=== PATIENT | male | born 1980 | race Caucasian/White ===

== ENCOUNTER 2021-01-11 22:26 | Emergency (ER) | payer SELFPAY ==
[2021-01-11] MEDS ORDERED: Acetaminophen 500 MG Tab ONE (23:27)
[2021-01-11] MEDS ORDERED: Dexamethasone 10 MG/ML SDV IM ONE (23:28)
[2021-01-11] MEDS ORDERED: Sodium Chloride 0.9% 1,000 ML IV ONE (23:28)
--- NOTE | 2021-01-11 23:31 | EDM.PDOC ---
<Jamel Kumar - Last Filed: 01/12/21 02:52> ED HPI GENERAL MEDICAL PROBLEM - General Chief Complaint: Respiratory Problem Stated Complaint: DIFFICULTY BREATHING Time Seen by Provider: 01/11/21 23:11 Source of Information: Reports: Patient History Limitations: Reports: Respiratory Distress - History of Present Illness INITIAL COMMENTS - FREE TEXT/NARRATIVE: Patient is a 40-year-old male presents today for shortness of breath. States for the past few days has not been feeling well with body aches and fatigue he states this evening his breathing became more intense and he feels he has to work to breathe. In triage patient was satting 50% on room air replacement fever and improvement to the mid 80s. Patient current denies any chest pain ab dominal pain states he feels very short of breath and fatigue. Patient also found to have a fever as well. - Related Data Allergies Allergy/AdvReac Type Severity Reaction Status Date / Time No Known Allergies Allergy Verified 01/11/21 23:29 Home Meds: Home Meds . [No Known Home Meds] 01/11/21 [History] ED ROS GENERAL - Review of Systems Review Of Systems: Unable To Obtain Reason Not Obtained: Respiratory status ED EXAM, GENERAL - Physical Exam Exam: See Below Exam Limited By: Respiratory Distress General Appearance: Severe Distress Eye Exam: Bilateral Eye: EOMI, PERRL Head: Atraumatic Neck: Normal Inspection Respiratory/Chest: Respiratory Distress Cardiovascular: Normal Peripheral Pulses, Regular Rate, Rhythm GI/Abdominal: Normal Bowel Sounds, Soft, Non-Tender Extremities: Normal Inspection, Normal Range of Motion Neurological: Alert, Oriented #1 Interpretation EKG Date: 01/11/21 Time: 23:18 Rhythm: Other (sinus tach) Rate (Beats/Min): 127 ST-T: Normal Course - Re-Assessments/Exams Free Text/Narrative Re-Assessment/Exam: 01/12/21 00:57 Patient has a positive troponin sugar 600. Patient EKG showed a sinus tach is not complaining of any chest pain currently. Patient will need to be transferred we have called multiple hospitals who do not have beds who continue to look for placement and transfer for patient. Patient was given IV insulin and IV potassium as well. 01/12/21 02:52 We have placed multiple calls out to have patient transferred. We have tried [facility] and I will will without success. Patient was started on Lovenox. Patient will likely need a Valdez as his creatinine is elevated. Patient still needs evaluation by cardiology and nephrology. Departure - Departure Disposition: DC/Tfer to [facility] 02 Clinical Impression: COVID-19 - Discharge Information Referrals: PCP,Not In Area [Primary Care Provider] - Forms: ED Department Discharge Critical Care Note - Critical Care Note Total Time (mins): 55 Comments: Critical Care Procedure Note Authorized and Performed by: Dr. Kumar Total critical care time: Approximately Due to a high probability of clinically significant, life threatening deterioration, the patient required my highest level of preparedness to intervene emergently and I personally spent this critical care time directly and personally managing the patient. This critical care time included obtaining a history; examining the patient; pulse oximetry; ordering and review of studies; arranging urgent treatment with development of a management plan; evaluation of patient's response to treatment; frequent reassessment; and, discussions with other providers. This critical care time was performed to assess and manage the high probability of imminent, life-threatening deterioration that could result in multi-organ failure. It was exclusive of separately billable procedures and treating other patients and teaching time. - Assessment/Plan Plan: Patient is a 40-year-old male who presents today for respiratory distress. Satting 50s on room air. Placed on a nonrebreather would not be transition to BiPAP as well. Unclear cause of this could be likely Covid will also obtain EKG and labs to rule out any other causes. <Maco Restrepo - Last Filed: 01/12/21 13:19> Course - Vital Signs Last Recorded V/S: Last Vital Signs Temp 96.8 F L 01/12/21 06:19 Pulse 97 01/12/21 13:08 Resp 26 H 01/12/21 13:08 BP 135/91 H 01/12/21 13:08 Pulse Ox 93 L 01/12/21 13:08 - Orders/Labs/Meds Orders: Active Orders 24 hr Category Date Time Status RT BiPAP/CPAP [RC] ASDIRECTED Care 01/12/21 00:13 Active Dextrose 50% in Water Med 01/12/21 00:45 Active 50 ml IVPUSH ASDIRECTED PRN Dextrose 50% in Water Med 01/12/21 02:03 Active 50 ml IVPUSH ASDIRECTED PRN Dextrose 50% in Water Med 01/12/21 04:16 Active 50 ml IVPUSH ASDIRECTED PRN Glucagon,Human Recombinant [GlucaGen] Med 01/12/21 00:45 Active 1 mg IM ASDIRECTED PRN Glucagon,Human Recombinant [GlucaGen] Med 01/12/21 02:03 Active 1 mg IM ASDIRECTED PRN Glucagon,Human Recombinant [GlucaGen] Med 01/12/21 04:16 Active 1 mg IM ASDIRECTED PRN Medication Orders Dextrose/Water (50% Dextrose In Water 50 Ml Syringe) 50 ml IVPUSH ASDIRECTED PRN PRN Reason: Hypoglycemia Dextrose/Water (50% Dextrose In Water 50 Ml Syringe) 50 ml IVPUSH ASDIRECTED PRN PRN Reason: Hypoglycemia Dextrose/Water (50% Dextrose In Water 50 Ml Syringe) 50 ml IVPUSH ASDIRECTED PRN PRN Reason: Hypoglycemia Glucagon (Glucagon,Human Recombinant 1 Mg Vial) 1 mg IM ASDIRECTED PRN PRN Reason: Hypoglycemia Glucagon (Glucagon,Human Recombinant 1 Mg Vial) 1 mg IM ASDIRECTED PRN PRN Reason: Hypoglycemia Glucagon (Glucagon,Human Recombinant 1 Mg Vial) 1 mg IM ASDIRECTED PRN PRN Reason: Hypoglycemia Labs: Laboratory Tests 01/11/21 01/11/21 01/11/21 Range/Units 23:35 23:40 23:40 WBC 8.29 (4.0-11.0) K/uL RBC 4.36 L (4.50-5.90) M/uL Hgb 14.2 (13.0-17.0) g/dL Hct 40.1 (38.0-50.0) % MCV 92.0 (80.0-98.0) fL MCH 32.6 H (27.0-32.0) pg MCHC 35.4 (31.0-37.0) g/dL RDW Std Deviation 43.2 (28.0-62.0) fl RDW Coeff of [place] 13 (11.0-15.0) % Plt Count 193 (150-400) K/uL MPV 10.60 (7.40-12.00) fL Neut % (Auto) 89.6 H (48.0-80.0) % Lymph % (Auto) 6.0 L (16.0-40.0) % [place] % (Auto) 4.3 (0.0-15.0) % Eos % (Auto) 0.0 (0.0-7.0) % Baso % (Auto) 0.1 (0.0-1.5) % Neut # (Auto) 7.4 H (1.4-5.7) K/uL Lymph # (Auto) 0.5 L (0.6-2.4) K/uL [place] # (Auto) 0.4 (0.0-0.8) K/uL Eos # (Auto) 0.0 (0.0-0.7) K/uL Baso # (Auto) 0.0 (0.0-0.1) K/uL Nucleated RBC % 0.0 /100WBC Nucleated RBCs # 0 K/uL D-Dimer, Quantitative (0.0-0.50) mg/L FEU ABG pH (7.35-7.45) ABG pCO2 (35-45) mmHG ABG pO2 (80-105) mmHG ABG HCO3 (22-26) mEq/L ABG Total CO2 (23-27) mmol/L ABG Base Excess (-2.0-3.0) Sodium 130 L (136-148) mmol/L Potassium 4.1 (3.5-5.1) mmol/L Chloride 94 L (98-107) mmol/L Carbon Dioxide 20.3 L (21.0-32.0) mmol/L BUN 70 H (7.0-18.0) mg/dL Creatinine 4.1 H (0.8-1.3) mg/dL Est Cr Clr Drug Dosing 25.00 mL/min Estimated GFR (MDRD) 16.1 ml/min Glucose 660 H* (74-106) mg/dL POC Glucose (70-99) mg/dL Calcium 7.1 L (8.5-10.1) mg/dL Magnesium (1.8-2.4) mg/dL Total Bilirubin 1.1 H (0.2-1.0) mg/dL AST 295 H (15-37) IU/L ALT 250 H (14-63) IU/L Alkaline Phosphatase 47 (46-116) U/L Troponin I 3.340 H* (0.000-0.056) ng/mL B-Natriuretic Peptide (<100) PG/ML Total Protein 5.8 L (6.4-8.2) g/dL Albumin 2.2 L (3.4-5.0) g/dL Globulin 3.6 (2.6-4.0) g/dL Albumin/Globulin Ratio 0.6 L (0.9-1.6) Urine Color Urine Appearance Urine pH (5.0-8.0) Ur Specific [place] (1.001-1.035) Urine Protein (NEGATIVE) mg/dL Urine Glucose (UA) (NEGATIVE) mg/dL Urine Ketones (NEGATIVE) mg/dL Urine Occult Blood (NEGATIVE) Urine Nitrite (NEGATIVE) Urine Bilirubin (NEGATIVE) Urine Urobilinogen (<2.0) EU/dL Ur Leukocyte Esterase (NEGATIVE) Urine RBC (0-2/HPF) Urine WBC (0-5/HPF) Ur Epithelial Cells (NONE-FEW) Urine Bacteria (NEGATIVE) SARS-CoV-2 RNA (DIALLO) POSITIVE H (NEGATIVE) 01/11/21 01/11/21 01/11/21 Range/Units 23:40 23:40 23:40 WBC (4.0-11.0) K/uL RBC (4.50-5.90) M/uL Hgb (13.0-17.0) g/dL Hct (38.0-50.0) % MCV (80.0-98.0) fL MCH (27.0-32.0) pg MCHC (31.0-37.0) g/dL RDW Std Deviation (28.0-62.0) fl RDW Coeff of [place] (11.0-15.0) % Plt Count (150-400) K/uL MPV (7.40-12.00) fL Neut % (Auto) (48.0-80.0) % Lymph % (Auto) (16.0-40.0) % [place] % (Auto) (0.0-15.0) % Eos % (Auto) (0.0-7.0) % Baso % (Auto) (0.0-1.5) % Neut # (Auto) (1.4-5.7) K/uL Lymph # (Auto) (0.6-2.4) K/uL [place] # (Auto) (0.0-0.8) K/uL Eos # (Auto) (0.0-0.7) K/uL Baso # (Auto) (0.0-0.1) K/uL Nucleated RBC % /100WBC Nucleated RBCs # K/uL D-Dimer, Quantitative 4.19 H (0.0-0.50) mg/L FEU ABG pH (7.35-7.45) ABG pCO2 (35-45) mmHG ABG pO2 (80-105) mmHG ABG HCO3 (22-26) mEq/L ABG Total CO2 (23-27) mmol/L ABG Base Excess (-2.0-3.0) Sodium (136-148) mmol/L Potassium (3.5-5.1) mmol/L Chloride (98-107) mmol/L Carbon Dioxide (21.0-32.0) mmol/L BUN (7.0-18.0) mg/dL Creatinine (0.8-1.3) mg/dL Est Cr Clr Drug Dosing mL/min Estimated GFR (MDRD) ml/min Glucose (74-106) mg/dL POC Glucose (70-99) mg/dL Calcium (8.5-10.1) mg/dL Magnesium 2.5 H (1.8-2.4) mg/dL Total Bilirubin (0.2-1.0) mg/dL AST (15-37) IU/L ALT (14-63) IU/L Alkaline Phosphatase (46-116) U/L Troponin I (0.000-0.056) ng/mL B-Natriuretic Peptide 289 H (<100) PG/ML Total Protein (6.4-8.2) g/dL Albumin (3.4-5.0) g/dL Globulin (2.6-4.0) g/dL Albumin/Globulin Ratio (0.9-1.6) Urine Color Urine Appearance Urine pH (5.0-8.0) Ur Specific [place] (1.001-1.035) Urine Protein (NEGATIVE) mg/dL Urine Glucose (UA) (NEGATIVE) mg/dL Urine Ketones (NEGATIVE) mg/dL Urine Occult Blood (NEGATIVE) Urine Nitrite (NEGATIVE) Urine Bilirubin (NEGATIVE) Urine Urobilinogen (<2.0) EU/dL Ur Leukocyte Esterase (NEGATIVE) Urine RBC (0-2/HPF) Urine WBC (0-5/HPF) Ur Epithelial Cells (NONE-FEW) Urine Bacteria (NEGATIVE) SARS-CoV-2 RNA (DIALLO) (NEGATIVE) 01/12/21 01/12/21 01/12/21 Range/Units 00:41 01:58 02:48 WBC (4.0-11.0) K/uL RBC (4.50-5.90) M/uL Hgb (13.0-17.0) g/dL Hct (38.0-50.0) % MCV (80.0-98.0) fL MCH (27.0-32.0) pg MCHC (31.0-37.0) g/dL RDW Std Deviation (28.0-62.0) fl RDW Coeff of [place] (11.0-15.0) % Plt Count (150-400) K/uL MPV (7.40-12.00) fL Neut % (Auto) (48.0-80.0) % Lymph % (Auto) (16.0-40.0) % [place] % (Auto) (0.0-15.0) % Eos % (Auto) (0.0-7.0) % Baso % (Auto) (0.0-1.5) % Neut # (Auto) (1.4-5.7) K/uL Lymph # (Auto) (0.6-2.4) K/uL [place] # (Auto) (0.0-0.8) K/uL Eos # (Auto) (0.0-0.7) K/uL Baso # (Auto) (0.0-0.1) K/uL Nucleated RBC % /100WBC Nucleated RBCs # K/uL D-Dimer, Quantitative (0.0-0.50) mg/L FEU ABG pH 7.42 (7.35-7.45) ABG pCO2 27 L (35-45) mmHG ABG pO2 79 L (80-105) mmHG ABG HCO3 17 L (22-26) mEq/L ABG Total CO2 15.4 L (23-27) mmol/L ABG Base Excess -5.5 L (-2.0-3.0) Sodium (136-148) mmol/L Potassium (3.5-5.1) mmol/L Chloride (98-107) mmol/L Carbon Dioxide (21.0-32.0) mmol/L BUN (7.0-18.0) mg/dL Creatinine (0.8-1.3) mg/dL Est Cr Clr Drug Dosing mL/min Estimated GFR (MDRD) ml/min Glucose (74-106) mg/dL POC Glucose > 519 H* (70-99) mg/dL Calcium (8.5-10.1) mg/dL Magnesium (1.8-2.4) mg/dL Total Bilirubin (0.2-1.0) mg/dL AST (15-37) IU/L ALT (14-63) IU/L Alkaline Phosphatase (46-116) U/L Troponin I (0.000-0.056) ng/mL B-Natriuretic Peptide (<100) PG/ML Total Protein (6.4-8.2) g/dL Albumin (3.4-5.0) g/dL Globulin (2.6-4.0) g/dL Albumin/Globulin Ratio (0.9-1.6) Urine Color YELLOW Urine Appearance SLT CLOUDY Urine pH 6.0 (5.0-8.0) Ur Specific [place] 1.020 (1.001-1.035) Urine Protein 30 H (NEGATIVE) mg/dL Urine Glucose (UA) >=1000 (NEGATIVE) mg/dL Urine Ketones 15 H (NEGATIVE) mg/dL Urine Occult Blood LARGE H (NEGATIVE) Urine Nitrite NEGATIVE (NEGATIVE) Urine Bilirubin NEGATIVE (NEGATIVE) Urine Urobilinogen 0.2 (<2.0) EU/dL Ur Leukocyte Esterase NEGATIVE (NEGATIVE) Urine RBC 0-2 (0-2/HPF) Urine WBC 0-2 (0-5/HPF) Ur Epithelial Cells RARE (NONE-FEW) Urine Bacteria RARE (NEGATIVE) SARS-CoV-2 RNA (DIALLO) (NEGATIVE) 01/12/21 01/12/21 01/12/21 Range/Units 03:40 06:10 06:45 WBC (4.0-11.0) K/uL RBC (4.50-5.90) M/uL Hgb (13.0-17.0) g/dL Hct (38.0-50.0) % MCV (80.0-98.0) fL MCH (27.0-32.0) pg MCHC (31.0-37.0) g/dL RDW Std Deviation (28.0-62.0) fl RDW Coeff of [place] (11.0-15.0) % Plt Count (150-400) K/uL MPV (7.40-12.00) fL Neut % (Auto) (48.0-80.0) % Lymph % (Auto) (16.0-40.0) % [place] % (Auto) (0.0-15.0) % Eos % (Auto) (0.0-7.0) % Baso % (Auto) (0.0-1.5) % Neut # (Auto) (1.4-5.7) K/uL Lymph # (Auto) (0.6-2.4) K/uL [place] # (Auto) (0.0-0.8) K/uL Eos # (Auto) (0.0-0.7) K/uL Baso # (Auto) (0.0-0.1) K/uL Nucleated RBC % /100WBC Nucleated RBCs # K/uL D-Dimer, Quantitative (0.0-0.50) mg/L FEU ABG pH (7.35-7.45) ABG pCO2 (35-45) mmHG ABG pO2 (80-105) mmHG ABG HCO3 (22-26) mEq/L ABG Total CO2 (23-27) mmol/L ABG Base Excess (-2.0-3.0) Sodium 134 L 135 L (136-148) mmol/L Potassium 3.9 4.5 (3.5-5.1) mmol/L Chloride 101 103 (98-107) mmol/L Carbon Dioxide 20.9 L 23.3 (21.0-32.0) mmol/L BUN 68 H 72 H (7.0-18.0) mg/dL Creatinine 3.9 H 3.9 H (0.8-1.3) mg/dL Est Cr Clr Drug Dosing 26.28 26.28 mL/min Estimated GFR (MDRD) 17.0 17.0 ml/min Glucose 564 H* 541 H* (74-106) mg/dL POC Glucose 516 H* (70-99) mg/dL Calcium 7.2 L 7.3 L (8.5-10.1) mg/dL Magnesium (1.8-2.4) mg/dL Total Bilirubin 0.9 (0.2-1.0) mg/dL AST 260 H (15-37) IU/L ALT 248 H (14-63) IU/L Alkaline Phosphatase 48 (46-116) U/L Troponin I 2.780 H* (0.000-0.056) ng/mL B-Natriuretic Peptide (<100) PG/ML Total Protein 5.7 L (6.4-8.2) g/dL Albumin 2.2 L (3.4-5.0) g/dL Globulin 3.5 (2.6-4.0) g/dL Albumin/Globulin Ratio 0.6 L (0.9-1.6) Urine Color Urine Appearance Urine pH (5.0-8.0) Ur Specific [place] (1.001-1.035) Urine Protein (NEGATIVE) mg/dL Urine Glucose (UA) (NEGATIVE) mg/dL Urine Ketones (NEGATIVE) mg/dL Urine Occult Blood (NEGATIVE) Urine Nitrite (NEGATIVE) Urine Bilirubin (NEGATIVE) Urine Urobilinogen (<2.0) EU/dL Ur Leukocyte Esterase (NEGATIVE) Urine RBC (0-2/HPF) Urine WBC (0-5/HPF) Ur Epithelial Cells (NONE-FEW) Urine Bacteria (NEGATIVE) SARS-CoV-2 RNA (DIALLO) (NEGATIVE) 01/12/21 01/12/21 Range/Units 06:45 11:45 WBC (4.0-11.0) K/uL RBC (4.50-5.90) M/uL Hgb (13.0-17.0) g/dL Hct (38.0-50.0) % MCV (80.0-98.0) fL MCH (27.0-32.0) pg MCHC (31.0-37.0) g/dL RDW Std Deviation (28.0-62.0) fl RDW Coeff of [place] (11.0-15.0) % Plt Count (150-400) K/uL MPV (7.40-12.00) fL Neut % (Auto) (48.0-80.0) % Lymph % (Auto) (16.0-40.0) % [place] % (Auto) (0.0-15.0) % Eos % (Auto) (0.0-7.0) % Baso % (Auto) (0.0-1.5) % Neut # (Auto) (1.4-5.7) K/uL Lymph # (Auto) (0.6-2.4) K/uL [place] # (Auto) (0.0-0.8) K/uL Eos # (Auto) (0.0-0.7) K/uL Baso # (Auto) (0.0-0.1) K/uL Nucleated RBC % /100WBC Nucleated RBCs # K/uL D-Dimer, Quantitative (0.0-0.50) mg/L FEU ABG pH 7.37 (7.35-7.45) ABG pCO2 36 (35-45) mmHG ABG pO2 74 L (80-105) mmHG ABG HCO3 21 L (22-26) mEq/L ABG Total CO2 18.6 L (23-27) mmol/L ABG Base Excess -3.6 L (-2.0-3.0) Sodium (136-148) mmol/L Potassium (3.5-5.1) mmol/L Chloride (98-107) mmol/L Carbon Dioxide (21.0-32.0) mmol/L BUN (7.0-18.0) mg/dL Creatinine (0.8-1.3) mg/dL Est Cr Clr Drug Dosing mL/min Estimated GFR (MDRD) ml/min Glucose (74-106) mg/dL POC Glucose (70-99) mg/dL Calcium (8.5-10.1) mg/dL Magnesium (1.8-2.4) mg/dL Total Bilirubin (0.2-1.0) mg/dL AST (15-37) IU/L ALT (14-63) IU/L Alkaline Phosphatase (46-116) U/L Troponin I 2.328 H* (0.000-0.056) ng/mL B-Natriuretic Peptide (<100) PG/ML Total Protein (6.4-8.2) g/dL Albumin (3.4-5.0) g/dL Globulin (2.6-4.0) g/dL Albumin/Globulin Ratio (0.9-1.6) Urine Color Urine Appearance Urine pH (5.0-8.0) Ur Specific [place] (1.001-1.035) Urine Protein (NEGATIVE) mg/dL Urine Glucose (UA) (NEGATIVE) mg/dL Urine Ketones (NEGATIVE) mg/dL Urine Occult Blood (NEGATIVE) Urine Nitrite (NEGATIVE) Urine Bilirubin (NEGATIVE) Urine Urobilinogen (<2.0) EU/dL Ur Leukocyte Esterase (NEGATIVE) Urine RBC (0-2/HPF) Urine WBC (0-5/HPF) Ur Epithelial Cells (NONE-FEW) Urine Bacteria (NEGATIVE) SARS-CoV-2 RNA (DIALLO) (NEGATIVE) Meds: Medications Generic Name Dose Route Start Last Admin Trade Name Saul PRN Reason Stop Dose Admin Dextrose/Water 50 ml 01/12/21 00:45 50% Dextrose In Water 50 Ml Syringe IVPUSH ASDIRECTED PRN Hypoglycemia Dextrose/Water 50 ml 01/12/21 02:03 50% Dextrose In Water 50 Ml Syringe IVPUSH ASDIRECTED PRN Hypoglycemia Dextrose/Water 50 ml 01/12/21 04:16 50% Dextrose In Water 50 Ml Syringe IVPUSH ASDIRECTED PRN Hypoglycemia Glucagon 1 mg 01/12/21 00:45 Glucagon,Human Recombinant 1 Mg Vial IM ASDIRECTED PRN Hypoglycemia Glucagon 1 mg 01/12/21 02:03 Glucagon,Human Recombinant 1 Mg Vial IM ASDIRECTED PRN Hypoglycemia Glucagon 1 mg 01/12/21 04:16 Glucagon,Human Recombinant 1 Mg Vial IM ASDIRECTED PRN Hypoglycemia Discontinued Medications Generic Name Dose Route Start Last Admin Trade Name Saul PRN Reason Stop Dose Admin Acetaminophen Confirm 01/11/21 23:27 01/11/21 23:36 Acetaminophen 500 Mg Tab Administered 01/11/21 23:28 Not Given Dose 1,000 mg .ROUTE .STK-MED ONE Acetaminophen 1,000 mg 01/11/21 23:34 01/11/21 23:36 Acetaminophen 500 Mg Tab PO 01/11/21 23:35 1,000 mg ONETIME ONE Administration Calcium Gluconate 1 gm 01/12/21 04:27 01/12/21 04:46 Calcium Gluconate 10% 1 Gm/10 Ml Sdv IVPUSH 01/12/21 04:28 1 gm ONETIME ONE Administration Dexamethasone 10 mg 01/11/21 23:28 01/11/21 23:34 Dexamethasone 10 Mg/Ml Sdv IM 01/11/21 23:29 10 mg ONETIME ONE Administration Enoxaparin Sodium 107 mg 01/12/21 01:16 01/12/21 01:42 Enoxaparin 100 Mg/1 Ml Syringe SUBCUT 01/12/21 01:17 107 mg BID ONE Administration Sodium Chloride 1,000 mls @ 999 mls/hr 01/11/21 23:28 01/11/21 23:35 Normal Saline IV 01/12/21 00:28 999 mls/hr .BOLUS ONE Administration Potassium Chloride 40 meq/ 100 mls @ 25 mls/hr 01/12/21 00:52 01/12/21 01:19 Premix IV 01/12/21 04:51 25 mls/hr ONETIME ONE Administration Sodium Chloride 1,000 mls @ 999 mls/hr 01/12/21 02:07 01/12/21 02:12 Normal Saline IV 01/12/21 03:07 999 mls/hr .BOLUS ONE Administration Remdesivir 200 mg/ Sodium 250 mls @ 250 mls/hr 01/12/21 10:30 01/12/21 11:18 Chloride IV 01/12/21 10:31 250 mls/hr ONETIME ONE Administration Insulin Human Regular 10 unit 01/12/21 00:45 01/12/21 00:53 Insulin Regular, Human 100 Units/Ml 10 Ml Vial IVPUSH 01/12/21 00:46 10 unit ONETIME ONE Administration Protocol Insulin Human Regular 10 unit 01/12/21 02:03 01/12/21 03:13 Insulin Regular, Human 100 Units/Ml 10 Ml Vial IVPUSH 01/12/21 02:04 10 unit ONETIME ONE Administration Protocol Insulin Human Regular 30 unit 01/12/21 04:16 01/12/21 04:42 Insulin Regular, Human 100 Units/Ml 10 Ml Vial SUBCUT 01/12/21 04:17 30 units ONETIME ONE Administration Protocol - Re-Assessments/Exams Free Text/Narrative Re-Assessment/Exam: 01/12/21 09:29 I reached out to [facility]; they are aware of patient and are working on potential placement 01/12/21 10:31 [facility] hospitalist called back and does not accept patient as he believes the patient needs ICU level care. I was not aware that ICU level care had not been previously requested. Will reach out to transfer center at [facility] and see if they have ICU availability 01/12/21 11:07 I did discuss with patient the risks and benefits of remdesivir and through shared decision making will give loading dose of remdesivir in the emergency department. 01/12/21 12:16 I talked with an eyewear manufacturing tech at a hospital in [place]. They are full right now but have placed patient on the transfer list. 01/12/21 12:42 Patient switched to regular BiPAP machine 04/1101/12/21 13:17 Patient was accepted at [place] by Dr. Kruse Departure - Departure Time of Disposition: 13:19 Condition: Serious Sepsis Event Note (ED) - Focused Exam Vital Signs: Vital Signs Temp Pulse Resp BP Pulse Ox 01/12/21 13:08 97 26 H 135/91 H 93 L 01/12/21 12:00 99 26 H 159/118 H 92 L 01/12/21 11:00 100 20 137/89 94 L 01/12/21 10:00 99 26 H 159/118 H 01/12/21 09:00 100 26 H 130/90 94 L 01/12/21 08:06 100 26 H 128/62 94 L 01/12/21 07:19 97 24 H 123/81 91 L 01/12/21 06:51 99 123/82 93 L 01/12/21 06:19 96.8 F L 94 126/79 90 L 01/12/21 05:35 106 H 133/88 93 L 01/12/21 04:48 98 92 L 01/12/21 03:46 104 H 90 L 01/12/21 03:38 89 L 01/12/21 03:35 106 H 116/60 84 L 01/12/21 03:05 103 H 125/81 93 L 01/12/21 02:23 110 H 92 L 01/12/21 02:18 111 H 129/88 91 L 01/12/21 02:14 112 H 88 L 01/12/21 01:45 87 L 01/12/21 01:21 98.8 F 115 H 20 119/57 L 95
[2021-01-11] MEDS ORDERED: Acetaminophen 500 MG Tab PO ONE (23:34)
[2021-01-12 00:06] LABS: CARBON DIOXIDE,CO2 20.3 mmol/L (21.0-32.0); POTASSIUM,K 4.1 mmol/L (3.5-5.1)
--- NOTE | 2021-01-12 00:14 | CR ---
INDICATION: Shortness of breath. Hypoxia. COVID. COMPARISON: None. FINDINGS/IMPRESSION: Portable AP chest radiograph. Evaluation is limited by shallow inspiration and large body habitus. Bilateral pulmonary infiltrates are present, worse on the right than the left. This could represent pneumonia, including COVID-19 pneumonia. No pleural effusions are evident. Included bones are unremarkable aside from an old healed right clavicle fracture. Dictated by Demetrio Garcia MD @ 01/12/2021 12:12:09 AM Dictated by: Demetrio Garcia MD @ 01/12/2021 00:13:44 (Electronically Signed)
[2021-01-12] MEDS ORDERED: Glucagon,Human Recombinant 1 MG Vial IM PRN ×3 (00:45→04:16)
[2021-01-12] MEDS ORDERED: 50% Dextrose in Water 50 ML Syringe IVPUSH PRN ×3 (00:45→04:16)
[2021-01-12] MEDS ORDERED: Insulin Regular, Human 100 Units/ML 10 ML Vial IVPUSH ONE ×2 (00:45→02:03)
[2021-01-12] MEDS ORDERED: Potassium Chloride Riders 40 MEQ in Premix Bag 1 BAG IV ONE (00:52)
[2021-01-12] MEDS ORDERED: Enoxaparin 100 MG/1 ML Syringe SUBCUT ONE (01:16)
[2021-01-12] MEDS ORDERED: Sodium Chloride 0.9% 1,000 ML IV ONE (02:07)
[2021-01-12 04:06] LABS: CARBON DIOXIDE,CO2 20.9 mmol/L (21.0-32.0); POTASSIUM,K 3.9 mmol/L (3.5-5.1)
[2021-01-12] MEDS ORDERED: Insulin Regular, Human 100 Units/ML 10 ML Vial SUBCUT ONE (04:16)
[2021-01-12] MEDS ORDERED: Calcium Gluconate 10% 1 GM/10 ML SDV IVPUSH ONE (04:27)
[2021-01-12 07:34] LABS: CARBON DIOXIDE,CO2 23.3 mmol/L (21.0-32.0); POTASSIUM,K 4.5 mmol/L (3.5-5.1)
[2021-01-12] MEDS ORDERED: REMDESIVIR 200 MG in Sodium Chloride 0.9% 250 ML IV ONE (10:30)
== END 2021-01-12 14:00 ==
LOC: MW.ED 22:26
DX: U07.1 COVID-19 (principal); R00.0 Tachycardia, unspecified
CPT/HCPCS: 36415; 36600; 71045; 80048; 80053; 81001; 82803; 82947; 83735; 83880; 84484; 85025; 85379; 87635; 93005; 94660; 96372; 96374; 99291; A9270; J0610; J1100; J1650; J1815; J3480; J7030; J7050; U0002